=== PATIENT | male | born 1945 | race Caucasian/White ===

== ENCOUNTER → 2016-08-12 | Outpatient (CLI) | payer OTHER, MEDICAID | LOC: BHLMT 13:30 | PROVIDERS: ATTEND Internal Medicine Cardiovascular Disease | DX: R07.9 Chest pain, unspecified (principal); I25.10 Atherosclerotic heart disease of native coronary artery without angina pectoris; R06.02 Shortness of breath; I21.4 Non-ST elevation (NSTEMI) myocardial infarction | CPT/HCPCS: 78452; 93017; A9500; J2785 ==

== ENCOUNTER 2016-08-25 09:10 | Observation (INO) | payer OTHER, MEDICAID ==
--- NOTE | 2016-08-25 08:01 | GHP ---
[f rep st] PREOP HISTORY AND PHYSICAL DATE OF ADMISSION: 08/25/2016 HISTORY OF PRESENT ILLNESS: The patient is a 71-year-old male who was found to have severe left carotid stenosis. He also came to see us for bilateral lower extremity peripheral vascular disease. 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 He then had a workup for chest pain in the [facility] ER in August of 2015. 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 Olson at [facility]. Workup involved a carotid ultrasound which showed 80% left carotid stenosis. He denies any recent stroke-like symptoms. He has been taking aspirin and Lipitor for his cardiac problems. PAST MEDICAL HISTORY: Coronary artery disease, carotid stenosis, hypertension, dyslipidemia, history of myocardial infarction, peripheral vascular disease. PAST SURGICAL HISTORY: Includes stenting of coronary artery. MEDICATION: Albuterol, Plavix, ipratropium, albuterol, Lipitor, lisinopril, metoprolol, Nitrostat, Symbicort, Tylenol. ALLERGIES: No known drug allergies. SOCIAL HISTORY: Nonsmoker. FAMILY HISTORY: Noncontributory. REVIEW OF SYSTEMS: A 10-point review of systems negative aside from that in HPI below. PHYSICAL EXAM: GENERAL: Reveals a well-groomed 71-year-old male, alert and oriented x3 in no acute distress. HEENT: Normocephalic, atraumatic. Left carotid bruit. No right carotid bruits. Pupils equal and round. Tongue midline. CHEST: Clear to auscultation bilaterally. CARDIAC: Regular rate and rhythm without murmurs. ABDOMEN: Soft, nontender. No masses. EXTREMITIES : Warm and dry. PSYCH: Normal mood and affect. IMPRESSION: This is a 71-year-old male, with a cardiac history, as well as history of transient ischemic attack, who now presents with likely 80% left carotid stenosis. PLAN: Plan is to proceed with a left carotid endarterectomy after confirmation of carotid stenosis via CTA of the neck. Risks and options have been fully discussed including, but not limited to, bleeding, infection, nerve injury, damage to surrounding structures, recurrent stenosis, stroke and even and he requests to proceed. /[id number]/MODL MTDD
--- NOTE | 2016-08-25 09:20 | PDHPUP ---
History & Physical Update H&P update statement: This history and physical update is based on an assessment of the patient which was completed after admission or registration (within 24 hours), but prior to the surgery/procedure. H&P update: H&P reviewed & patient examined, no change in patient's condition since H&P completed
[2016-08-25] MEDS ORDERED: ceFAZolin 2 GM/DEXTROSE 100 ML IV ONE (09:45)
[2016-08-25] MEDS ORDERED: LR 1,000 ML IV SCH (09:45)
[2016-08-25] MEDS ORDERED: LIDOCAINE 1% 2 ML INJ ONE (10:07)
[2016-08-25] MEDS ORDERED: THROMBIN (BOVINE) 20,000 UNIT SPRAY TP ONE (10:16)
[2016-08-25] MEDS ORDERED: BUPIVACAINE 0.25% 30 ML SDV ONE (10:17)
[2016-08-25] MEDS ORDERED: LR 1,000 ML IV ONE (10:52)
[2016-08-25] MEDS ORDERED: LIDOCAINE 1% 5 ML SDV ID PRN (10:52)
[2016-08-25 10:59] LABS: ANION GAP 7 mEq/L (8-16); CALCIUM 8.8 mg/dL (8.5-10.4); CARBON DIOXIDE 22 mEq/l (22-31); CHLORIDE 99 mEq/L (97-110); CREATININE 0.6 mg/dL (0.7-1.3); GLOMERULAR FILTRATION RATE > 60; GLUCOSE 86 mg/dL (70-100); SODIUM 128 mEq/L (134-144)
[2016-08-25] MEDS ORDERED: IOPAMIDOL (ISOVUE 370) 100 ML BTL IV ONE (11:21)
--- NOTE | 2016-08-25 11:55 | PDANEPAE ---
ANE History of Present Illness Patient presents for left CEA ANE Past Medical History - Cardiovascular History Hx Hypertension: Yes Hx Arrhythmias: No Hx Chest Pain: Yes Hx Coronary Artery / Peripheral Vascular Disease: Yes Hx CHF / Valvular Disease: No Hx Palpitations: Yes - Pulmonary History Hx COPD: Yes Hx Oxygen in Use at Home: No - Neurologic History Hx Cerebrovascular Accident: Yes Hx Seizures: No Hx Dementia: No - Endocrine History Hx Diabetes: No - Renal History Hx Renal Disorders: No - Liver History Hx Hepatic Disorders: No - Neurological & Psychiatric Hx Hx Neurological and Psychiatric Disorders: No - Cancer History Hx Cancer: Yes - Congenital Disorder History Hx Congenital Disorders: No - GI History Hx Gastrointestinal Disorders: No - Chronic Pain History Chronic Pain: No ANE Review of Systems - Exercise capacity METS (RN): 2 METS ANE Patient History - Allergies Allergies/Adverse Reactions: No Known Allergies Allergy (Unverified 08/30/15 16:01) - Home Medications Home Medications: Acetaminophen [Tylenol ES 500 mg (*)] 1,000 mg PO HS PRN 08/30/15 [Last Taken ] Albuterol [Ventolin Hfa Inhaler] 2 puffs IH Q6 PRN 08/30/15 [Last Taken 08/30/15 ] Aspirin EC [Aspirin EC 325 mg (*)] 325 mg PO HS 08/30/15 [Last Taken 08/22/16] Budesonide/Formoterol 160/4.5 [Symbicort 160-4.5 Mcg Inh (*)] 1 puffs IH BID [Last Taken 08/25/16] Clopidogrel Bisulfate [Clopidogrel] 75 mg PO HS 08/30/15 [Last Taken 08/22/16] Ipratropium/Albuterol [Duoneb (*)] 3 ml IH QID 08/30/15 [Last Taken 08/25/16] Nitroglycerin [Nitrostat] 0.3 mg SL Q5M PRN 08/30/15 [Last Taken 08/30/15] - NPO status NPO Since - Liquids (Date): 08/24/16 NPO Since - Liquids (Time): 20:30 NPO Since - Solids (Date): 08/24/16 NPO Since - Solids (Time): 17:00 - Smoking Hx Smoking Status: Former smoker ANE Labs/Vital Signs - Labs Result Diagrams: 08/25/16 10:30 - Vital Signs Blood Pressure: 149/68 Heart Rate: 103 Respiratory Rate: 126 O2 Sat (%): 93 Height: 175.26 cm Weight: 62.142 kg ANE Physical Exam - Airway Mallampati Score: Class 1 Mouth exam: poor dentition, otto - Pulmonary Pulmonary: no respiratory distress - Cardiovascular Cardiovascular: regular rate and rhythym - ASA Status ASA Status: IV (GA RBA discussed, patient agrees to proceed. ) ANE Anesthesia Plan Anesthesia Plan: general endotracheal anesthesia (RBA discussed) Lines/Monitors: arterial line, additional IV
[2016-08-25 12:06] LABS: % IMMATURE GRANULYOCYTES 0.3 % (0.0-1.1); ABSOLUTE IMMATURE GRANULOCYTES 0.05 10^3/uL (0.00-0.10); ADD DIFF? NO; ADD MORPH? NO; ADD SCAN? YES; ATYPICAL LYMPHOCYTE FLAG 0 (0-99); FRAGMENT RBC FLAG 0 (0-99); HEMOGLOBIN 13.6 g/dL (13.7-17.5); LEFT SHIFT FLG 0 (0-99); LIPEMIA HEMOLYSIS FLAG 90 (0-99); MEAN CELL HEMOGLOBIN 31.8 pg (27.9-34.1); MEAN CELL VOLUME 93.5 fL (81.5-99.8); MEAN PLATELET VOLUME 10.7 fL (8.7-11.7); PLATELET CLUMPS FLAG 10 (0-99); PLATELET COUNT 182 10^3/uL (150-400); RED BLOOD CELL COUNT 4.28 10^6/uL (4.40-6.38); RED CELL DISTRIBUTION WIDTH 13.2 % (11.5-15.2)
[2016-08-25 12:53] LABS: SCAN POSITIVE
[2016-08-25 12:55] LABS: PLATELET ESTIMATE ADEQUATE (ADEQ)
[2016-08-25] MEDS ORDERED: NON-FORMULARY NEW DRUG (Albuterol 2 PUFFS) IH PRN (18:14)
[2016-08-25] MEDS ORDERED: ACETAMINOPHEN 500 MG TAB PO PRN (18:14)
[2016-08-25] MEDS ORDERED: NITROGLYCERIN 0.3 MG SL PRN (18:14)
[2016-08-25] MEDS ORDERED: NITROGLYCERIN 0.4 MG BTL SL PRN (18:32)
[2016-08-25] MEDS ORDERED: ALBUTEROL 200 PUFFS/18 GM MDI IH PRN (18:37)
[2016-08-25] MEDS: METOPROLOL TARTRATE 25 MG TAB PO SCH (20:08)
[2016-08-25] MEDS ORDERED: ASPIRIN EC 325 MG TAB PO SCH (21:00)
[2016-08-25] MEDS ORDERED: CLOPIDOGREL BISULFATE 75 MG TAB PO SCH (21:00)
[2016-08-25] MEDS: IPRATROPIUM/ALBUTEROL 3 ML DEYVIAL IH SCH (21:50)
[2016-08-25] MEDS: BUDESONIDE/FORMOTEROL 160/4.5 60 PUFFS/MDI IH SCH (21:50)
[2016-08-26 04:37] LABS: % IMMATURE GRANULYOCYTES 0.3 % (0.0-1.1); ABSOLUTE IMMATURE GRANULOCYTES 0.06 10^3/uL (0.00-0.10); ABSOLUTE NRBC COUNT 0.02 10^3/uL (0-0.01); ADD DIFF? NO; ADD MORPH? NO; ADD SCAN? YES; ATYPICAL LYMPHOCYTE FLAG 10 (0-99); FRAGMENT RBC FLAG 0 (0-99); HEMATOCRIT 39.8 % (40.0-51.0); HEMOGLOBIN 13.4 g/dL (13.7-17.5); LEFT SHIFT FLG 0 (0-99); LIPEMIA HEMOLYSIS FLAG 80 (0-99); MEAN CELL HEMOGLOBIN 31.5 pg (27.9-34.1); MEAN CELL HEMOGLOBIN CONCENTR. 33.7 g/dL (32.4-36.7); MEAN CELL VOLUME 93.4 fL (81.5-99.8); MEAN PLATELET VOLUME 10.6 fL (8.7-11.7); NRBC-AUTO% 0.1 % (0.0-0.2); PLATELET CLUMPS FLAG 0 (0-99); PLATELET COUNT 183 10^3/uL (150-400); RED BLOOD CELL COUNT 4.26 10^6/uL (4.40-6.38)
[2016-08-26 05:05] LABS: ANION GAP 7 mEq/L (8-16); CALCIUM 8.7 mg/dL (8.5-10.4); CARBON DIOXIDE 23 mEq/l (22-31); CHLORIDE 99 mEq/L (97-110); CREATININE 0.7 mg/dL (0.7-1.3); GLOMERULAR FILTRATION RATE > 60; GLUCOSE 76 mg/dL (70-100); POTASSIUM 4.2 mEq/L (3.5-5.2); SODIUM 129 mEq/L (134-144)
[2016-08-26] MEDS: IPRATROPIUM/ALBUTEROL 3 ML DEYVIAL IH SCH ×3 (05:31→15:00)
[2016-08-26 05:32] LABS: SCAN NEGATIVE
[2016-08-26] MEDS: METOPROLOL TARTRATE 25 MG TAB PO SCH (08:36)
[2016-08-26] MEDS ORDERED: LISINOPRIL 2.5 MG TAB PO SCH (09:00)
[2016-08-26] MEDS ORDERED: ATORVASTATIN CALCIUM 40 MG TAB PO SCH (09:00)
[2016-08-26] MEDS ORDERED: IOPAMIDOL (ISOVUE-300) 100 ML BTL ONE (09:18)
[2016-08-26] MEDS: BUDESONIDE/FORMOTEROL 160/4.5 60 PUFFS/MDI IH SCH (09:30)
--- NOTE | 2016-08-26 12:08 | SOAPPROG ---
TYLER Progress Note Assessment/Plan: Assessment/Plan: 71 Y M hx CLL, CAD, CT c stent, on plavix, admitted for carotid stenosis seen on US with plans for CEA. Now CTA showing higher lesion, not accessible in surgery. Also, incidental suspicious lung mass. CEA surgery cancelled. Would like patient to stay on his plavix for not only treatment of his CAD and stent, but now also for his high internal carotid artery stenosis. CT chest today to evaluate suspicious lung mass. Hospital course and dispo unclear now. Will await CT. He may need CT guided needle biopsy vs VATS. Seen and examined with Dr. Cheney. S: no complaints. O: gen: alert, nad heent: +L neck bruit. pupils equal pulm: no wob cor: rrr abd: soft, nt 08/26/16 12:05 Objective: Vital Signs Temp Pulse Resp BP Pulse Ox 36.5 C 103 H 22 H 110/53 L 86 L 08/26/16 08:24 08/26/16 09:34 08/26/16 09:34 08/26/16 08:24 08/26/16 11:53 Laboratory Results 08/26/16 03:35 08/26/16 03:35 08/25/16 08/26/16 08/27/16 05:59 05:59 05:59 Intake Total 400 240 Balance 400 240 ICD10 Worksheet Patient Problems: Problems Problem Status Onset CAD (coronary artery disease) Acute CAD S/P percutaneous coronary angioplasty Acute Chest pain Acute
[2016-08-26 17:11] VITALS: BP 116/64; PULSE 78; RESP 20; TEMP 97.6; O2SAT 99
== END 2016-08-26 19:38 | disposition home or self-care (01) ==
LOC: INTOOBSV 09:10 → F3E 09:10 → F2W 16:40
PROVIDERS: ADMIT Surgery; ATTEND Surgery
DX: I65.22 Occlusion and stenosis of left carotid artery (principal); I73.9 Peripheral vascular disease, unspecified; Z86.73 Personal history of transient ischemic attack (TIA), and cerebral infarction without residual deficits; Z79.82 Long term (current) use of aspirin; I25.10 Atherosclerotic heart disease of native coronary artery without angina pectoris; E78.5 Hyperlipidemia, unspecified; I10 Essential (primary) hypertension; R01.1 Cardiac murmur, unspecified; I25.2 Old myocardial infarction; Z95.5 Presence of coronary angioplasty implant and graft; R91.1 Solitary pulmonary nodule; Z87.891 Personal history of nicotine dependence
CPT/HCPCS: 70498; 71260; G0378; J1644; Q9967; J0690

== ENCOUNTER 2016-10-02 12:16 | Observation (INO) | payer OTHER, MEDICAID ==
[2016-10-02] MEDS ORDERED: NS 1,000 ML IV ONE (12:23)
[2016-10-02] MEDS ORDERED: DIAZEPAM 5 MG TAB PO ONE (12:23)
[2016-10-02] MEDS ORDERED: diphenhydrAMINE 25 MG CAP PO ONE ×2 (12:23→12:51)
[2016-10-02] MEDS ORDERED: FAMOTIDINE 20 MG TAB PO ONE (12:23)
[2016-10-02] MEDS ORDERED: ASPIRIN EC 325 MG TAB PO ONE ×2 (12:23→12:51)
--- NOTE | 2016-10-02 12:50 | CPEKG ---
Heart Rate: 111 RR Interval: 541 P-R Interval: 156 QRSD Interval: 90 QT Interval: 340 QTC Interval: 462 P [place]: 80 QRS [place]: 39 T Wave [place]: 55 EKG Severity - ABNORMAL ECG - EKG Impression: SINUS TACHYCARDIA EKG Impression: PROBABLE POSTERIOR INFARCT EKG Impression: PREVIOUS ECG WITH HYPERDYNAMIC T WAVES Electronically Signed By: Molina Olson 02-Oct-2016 12:55:01
[2016-10-02] MEDS ORDERED: FAMOTIDINE 20 MG TAB ONE (12:51)
[2016-10-02] MEDS ORDERED: DIAZEPAM 5 MG TAB ONE (12:51)
[2016-10-02 13:05] LABS: % IMMATURE GRANULYOCYTES 0.3 % (0.0-1.1); ABSOLUTE IMMATURE GRANULOCYTES 0.05 10^3/uL (0.00-0.10); ADD DIFF? NO; ADD MORPH? NO; ADD SCAN? YES; ATYPICAL LYMPHOCYTE FLAG 10 (0-99); FRAGMENT RBC FLAG 0 (0-99); HEMATOCRIT 38.7 % (40.0-51.0); HEMOGLOBIN 13.2 g/dL (13.7-17.5); LEFT SHIFT FLG 0 (0-99); LIPEMIA HEMOLYSIS FLAG 90 (0-99); MEAN CELL HEMOGLOBIN 31.9 pg (27.9-34.1); MEAN CELL HEMOGLOBIN CONCENTR. 34.1 g/dL (32.4-36.7); MEAN CELL VOLUME 93.5 fL (81.5-99.8); MEAN PLATELET VOLUME 10.2 fL (8.7-11.7); PLATELET CLUMPS FLAG 0 (0-99); PLATELET COUNT 195 10^3/uL (150-400); RED BLOOD CELL COUNT 4.14 10^6/uL (4.40-6.38); RED CELL DISTRIBUTION WIDTH 13.1 % (11.5-15.2)
[2016-10-02 13:17] LABS: SCAN POSITIVE
[2016-10-02 13:18] LABS: ANION GAP 12 mEq/L (8-16); CALCIUM 9.2 mg/dL (8.5-10.4); CARBON DIOXIDE 22 mEq/l (22-31); CHLORIDE 97 mEq/L (97-110); CHOLESTEROL 141 mg/dL (140-220); CHOLESTEROL/HDL RATIO 2.56 RATIO (1.00-4.97); CREATININE 0.8 mg/dL (0.7-1.3); GLOMERULAR FILTRATION RATE > 60; GLUCOSE 88 mg/dL (70-100); HIGH DENSITY LIPOPROTEIN 55 mg/dL (40-65); LDL/HDL RATIO 1.31 RATIO (1.00-3.64); LOW DENSITY LIPOPROTEIN 72 mg/dL (80-100); MAGNESIUM 1.8 mg/dL (1.6-2.3); NON-HIGH DENSITY LIPOPROTEIN 86 mg/dL (90-129); POTASSIUM 4.2 mEq/L (3.5-5.2); SODIUM 131 mEq/L (134-144); TRIGLYCERIDE 71 mg/dL (40-150); VERY LOW DENSITY LIPOPROTEINS 14 mg/dL (8-25)
[2016-10-02 13:19] LABS: INR 1.01 (0.83-1.16); PROTIME(PATIENT) 13.2 SEC (12.0-15.0)
[2016-10-02 13:36] LABS: PLATELET ESTIMATE ADEQUATE (ADEQ); SMUDGE CELLS 1+
[2016-10-02] MEDS ORDERED: LIDOCAINE 1% 300 MG/30 ML SDV ONE (14:52)
[2016-10-02] MEDS ORDERED: fentaNYL 100 MCG/2 ML INJ ONE ×2 (14:52→15:52)
[2016-10-02] MEDS ORDERED: HEPARIN 10,000 UNIT/10 ML MDV ONE (14:53)
[2016-10-02] MEDS ORDERED: IOPAMIDOL (ISOVUE-370) 150 ML BTL IV ONE (14:53)
[2016-10-02] MEDS ORDERED: VERAPAMIL 5 MG/2 ML VIAL ONE (14:53)
[2016-10-02] MEDS ORDERED: MIDAZOLAM 2 MG/2 ML VIAL ONE ×2 (14:53→15:52)
--- NOTE | 2016-10-02 16:28 | PDDXCAT ---
Diagnostic Cath Note - . 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 The patient has had previous aortoiliac stenting bilaterally. Access was gained at the level of the common femoral artery.) - Materials Left Heart Cath size: 5F Left Heart Cath materials: JL3.5, JR4.0, pigtail - Findings-Left Heart Catheterization LM: Large caliber vessel. Bifurcates into the LAD and circumflex. No evidence of disease. LAD: Large caliber, transapical vessel. Single diagonal branch. Luminal irregularities less than 20%. LCX: Stented proximal segment. Single large obtuse marginal branch. PDA identified (dominant vessel). Multiple posterior laterals. Patent stent without significant InStent restenoses. Otherwise luminal irregularities. RCA: Not engage. The patient has a known small, non dominant RCA. EDP: 106/5/10 mmHg. - Findings-Right Heart Catheterization AO: 101/51/69 mmHg. Complications: None. Estimated blood loss: <50ml Closure method: manual pressure Assessment: 1. Known CAD with previous stenting of the proximal circumflex. Current cardiac catheterization demonstrates patent stent with no other identified lesions. 2. Normal ejection fraction without wall motion abnormalities. 3. No identified valvular heart disease. 4. Known severe peripheral vascular disease. Plan: Patient will be evaluated for an alternate etiology to her chest discomfort. He will be treated aggressively with respect to secondary prevention. Patient Problems: Problems Problem Status Onset CAD (coronary artery disease) Acute CAD S/P percutaneous coronary angioplasty Acute Chest pain Acute
[2016-10-02] MEDS ORDERED: ACETAMINOPHEN 325 MG TAB PO PRN (17:08)
[2016-10-02] MEDS ORDERED: ONDANSETRON 4 MG/2 ML VIAL IVP PRN (17:08)
[2016-10-02] MEDS ORDERED: ONDANSETRON DISINTEGRATING 4 MG TAB PO PRN (17:08)
[2016-10-02] MEDS ORDERED: NITROGLYCERIN 0.4 MG BTL SL PRN (17:10)
[2016-10-02] MEDS ORDERED: ALBUTEROL 200 PUFFS/18 GM MDI IH PRN (17:10)
[2016-10-02] MEDS: METOPROLOL TARTRATE 25 MG TAB PO SCH (20:30)
[2016-10-02] MEDS ORDERED: PANTOPRAZOLE SODIUM 40 MG TAB PO SCH (21:00)
[2016-10-02] MEDS ORDERED: CLOPIDOGREL BISULFATE 75 MG TAB PO SCH (21:00)
[2016-10-02] MEDS ORDERED: predniSONE 1 MG TAB PO SCH (21:00)
[2016-10-02] MEDS ORDERED: ATORVASTATIN CALCIUM 40 MG TAB PO SCH (21:00)
[2016-10-02] MEDS ORDERED: BUDESONIDE/FORMOTEROL 160/4.5 60 PUFFS/MDI IH SCH (21:00)
[2016-10-02] MEDS ORDERED: ASPIRIN EC 325 MG TAB PO SCH (21:00)
[2016-10-02] MEDS: IPRATROPIUM/ALBUTEROL 3 ML DEYVIAL IH SCH (21:08)
[2016-10-03] MEDS: IPRATROPIUM/ALBUTEROL 3 ML DEYVIAL IH SCH (06:03)
[2016-10-03 06:04] VITALS: O2SAT 98
[2016-10-03 07:04] VITALS: BP 122/77; PULSE 93; RESP 20; TEMP 97.5
[2016-10-03] MEDS: METOPROLOL TARTRATE 25 MG TAB PO SCH (08:21)
[2016-10-03 10:24] LABS: COLOR YELLOW; LEUKOCYTE ESTERASE,URINE 2+ (NEGATIVE); NITRITE,URINE NEGATIVE (NEGATIVE)
[2016-10-03 10:31] LABS: BACTERIA 4+ /hpf (NONE SEEN); WBC,URINE 25-50 /hpf (0-3)
--- NOTE | 2016-10-03 22:38 | GDS ---
[f rep st] DISCHARGE SUMMARY DISCHARGE DIAGNOSES: 1. Angina reminiscent of previous symptoms preceding ST segment elevation myocardial infarction fou nd to have no obstructive lesions on cardiac catheterization. 2. History of coronary artery disease with ST-elevation myocardial infarction with percutaneous cor onary intervention to the circumflex in August of 2015. 3. History of peripheral vascular disease with previous stenting in his lower extremities. 4. History of left carotid disease. 5. History of previous transient ischemic attacks. 6. Hypertension. 7. Dyslipidemia. 8. Chronic obstructive pulmonary disease. 9. Nocturnal hypoxia on oxygen with the recommendations of daytime usage. 10. Previous suspicious right upper lobe nodule with no further workup recently. PROCEDURES: 1. 10/02/2016, left heart catheterization which showed no evidence of disease in the left main, lar ge caliber LAD with luminal irregularities less than 20%, proximally stented left circumflex with a single large OM with patent stents present and no other disease detected. RCA not engaged, known to be small and non dominant. LVEDP of 106. 2. 10/03/2016, chest x-ray which shows COPD, bronchitis and right upper lobe irregular pulmonary no dule for which PET scan has been previously recommended. BRIEF HISTORY: Please see dictated note from Everette Castro NP for further details. In brief Mr Janelle Segura is a 71-year-old male, who presented to clinic reporting ongoing fatigue symptoms, c hest pressure similar to his previous PA and left arm numbness relieved with nitroglycerin. He was advised to present to [facility] for further evaluation. He proceeded to left heart catheter ization and was found to have patent stent. HOSPITAL COURSE BY PROBLEM: 1. Chest pressure of unknown etiology. Chest x-ray is abnormal with bronchitis and suspicious pulm onary nodule, which will require outpatient workup. 2. Pulmonary nodule. He is to follow up with Everette next week as well as his PCP. 3. Leukocytosis. His white blood cell count is 17.25. He will need repeat labs in a week. His UA has 2+ leukocytosis and 4+ bacteria. He is asymptomatic in terms of dysuria. [facility]. RESULTS PENDING: None. DIET: Cardiac. PHYSICAL EXAM: VITAL SIGNS: On day of discharge, blood pressure 122/70, heart rate 93, respiration s 20, O2 saturation 98% on 1 L/minutes. GENERAL: He is a pleasant male, in no apparent distress. HEART: Regular rate and rhythm. LUNGS: Clear. Right groin site without bruit, ecchymosis, or swe lling. CBC on day of discharge, WBC 17.25, hemoglobin 13.2, hematocrit 38.7, platelet count 195. BMP with sodium 131, potassium 4.2, chloride 97, BUN 12, creatinine 0.8, glucose 88. A urine is with 2+ leuk ocyte esterase, 25-50 WBCs per high-power field 4+ bacteria. Telemetry is within normal limits. DISCHARGE MEDICATIONS: Please see med reconciliation for complete details. He is being discharged on his home prednisone, Protonix, DuoNeb, clopidogrel, Symbicort, atorvastatin, aspirin, albuterol, nitroglycerin, metoprolol, and Tylenol as needed. DISCHARGE INSTRUCTIONS: 1. Groin precautions reviewed. 2. Follow up with Everette Castro for results of cardiac catheterization. 3. Follow up with PCP for further workup of pulmonary nodule and bacteriuria. 4. Follow up CBC in 1 week's time. /[id number]/MODL
== END 2016-10-03 10:19 | disposition home or self-care (01) ==
LOC: FCATH 12:16 → F2W 17:08
PROVIDERS: ADMIT Internal Medicine Cardiovascular Disease; ATTEND Internal Medicine Cardiovascular Disease
PROC: B2151ZZ Fluoroscopy of Left Heart using Low Osmolar Contrast (ICD-10-PCS; principal; 2016-10-02)
PROC: B2111ZZ Fluoroscopy of Multiple Coronary Arteries using Low Osmolar Contrast (ICD-10-PCS; principal; 2016-10-02)
PROC: 4A023N7 Measurement of Cardiac Sampling and Pressure, Left Heart, Percutaneous Approach (ICD-10-PCS; principal; 2016-10-02)
DX: I25.119 Atherosclerotic heart disease of native coronary artery with unspecified angina pectoris (principal); I73.9 Peripheral vascular disease, unspecified; Z95.820 Peripheral vascular angioplasty status with implants and grafts; I77.9 Disorder of arteries and arterioles, unspecified; Z86.73 Personal history of transient ischemic attack (TIA), and cerebral infarction without residual deficits; I10 Essential (primary) hypertension; E78.5 Hyperlipidemia, unspecified; J44.9 Chronic obstructive pulmonary disease, unspecified; R09.02 Hypoxemia; Z99.81 Dependence on supplemental oxygen; R91.1 Solitary pulmonary nodule; D72.829 Elevated white blood cell count, unspecified; R94.31 Abnormal electrocardiogram [ECG] [EKG]
CPT/HCPCS: 71010; 71020; 93005; 93458; J1644; J2250; J3010; Q9967

== ENCOUNTER → 2016-10-02 | Outpatient (CLI) | payer OTHER, MEDICAID | LOC: BHLMT 09:30 | PROVIDERS: ATTEND Internal Medicine Cardiovascular Disease | DX: I25.10 Atherosclerotic heart disease of native coronary artery without angina pectoris (principal); R07.9 Chest pain, unspecified; E78.5 Hyperlipidemia, unspecified; I73.9 Peripheral vascular disease, unspecified; I77.9 Disorder of arteries and arterioles, unspecified | CPT/HCPCS: 93005-PO ==

== ENCOUNTER → 2016-10-31 | Outpatient (CLI) | payer OTHER, MEDICAID | LOC: BHLMT 15:00 | PROVIDERS: ATTEND Internal Medicine Cardiovascular Disease | DX: I25.10 Atherosclerotic heart disease of native coronary artery without angina pectoris (principal); I73.9 Peripheral vascular disease, unspecified; I47.1 Supraventricular tachycardia; I77.9 Disorder of arteries and arterioles, unspecified; R42 Dizziness and giddiness; J44.9 Chronic obstructive pulmonary disease, unspecified; Z95.5 Presence of coronary angioplasty implant and graft | CPT/HCPCS: 93005-PO ==